=== PATIENT | male | born 1995 | race Two or more races ===

== ENCOUNTER 2017-04-25 21:52 | Emergency (ER) | payer MEDICAID ==
[~2017-04-25] VITALS: Ht 165.1 cm; Wt 65.8 kg
[2017-04-25 22:57] LABS: Basophils # (auto) 0 uL; Basophils % (auto) 0.5 % (0.0-2.0); Eosinophils # (auto) 0.1 uL; Eosinophils % (auto) 0.6 % (0.0-7.0); Hematocrit 45.3 % (41.0-53.0); Hemoglobin 14.6 g/dL (13.5-17.5); Lymphocytes # (auto) 2.4 uL; Lymphocytes % (auto) 26.8 % (10.0-50.0); Mean Corpuscular Hemoglobin 28.9 pg (28.0-32.0); Mean Corpuscular Hgb Conc. 32.3 g/dL (32.0-36.0); Mean Corpuscular Volume 89.5 fL (80.0-100.0); Monocytes # (auto) 0.7 uL; Monocytes % (auto) 7.9 % (0.0-12.0); Neutrophils # (auto) 5.8 uL; Neutrophils % (auto) 64.2 % (37.0-80.0); Nucleated Red Blood Cells % 0.2 %; Platelet Count (auto) 174 10^3/uL (140-450); Red Cell Distribution Width 13.5 % (11.8-14.3); White Blood Cell 9.1 10^3/uL (4.4-10.8)
[2017-04-25 23:16] LABS: Albumin 3.9 g/dL (3.4-5.0); BUN/Creatinine Ratio 17.6; Bilirubin, Total 0.2 mg/dL (0.2-1.0); Calcium 8.7 mg/dL (8.5-10.1); Potassium 3.4 mmol/L (3.5-5.1); Total Protein 7.5 g/dL (6.4-8.2)
[2017-04-26] MEDS ORDERED: SODIUM CHLORIDE 0.9% 1,000 ML IVB ONE ×2 (02:11)
[2017-04-26] MEDS ORDERED: ONDANSETRON HCL 4 MG/2 ML VIAL IV ONE ×2 (02:15→04:45)
[2017-04-26] MEDS ORDERED: HYDROmorphone HCL 2 MG/ML VL IV ONE ×2 (02:15→04:45)
[2017-04-26 03:20] LABS: INR 0.93 (0.9-1.15); Partial Thromboplastin Time 27.2 sec (22.64-33.71); Prothrombin Time 10.1 sec (9.37-12.3)
[2017-04-26 05:00] VITALS: BP 126/77
[2017-04-26 06:17] LABS: Urine Bilirubin Negative (Negative); Urine Blood Negative /uL (Negative); Urine Color Yellow (Yellow); Urine Glucose Normal (Normal); Urine Ketone 1+ (Negative); Urine Nitrite Negative (Negative); Urine RBC 1 /hpf (0 - 3); Urine Urobilinogen Normal (Negative); Urine pH 7.5 (5.0-8.0)
== END 2017-04-26 05:34 | disposition home or self-care (01) ==
LOC: ER 21:57 → EDBD 21:57 → ER 04-26 05:34
DX: R10.33 Periumbilical pain (principal)
CPT/HCPCS: 36415; 74000; 74176; 80053; 81001; 82150; 83690; 85025; 85610; 85730; 96361; 96374; 96375; 96376; 99285; J1170; J2405; J7030

== ENCOUNTER 2023-01-14 12:05 | Emergency (ER) | payer MEDICAID ==
[~2023-01-14] VITALS: Ht 165.1 cm; Wt 72.7 kg
[2023-01-14 12:22] VITALS: BP 122/73; PULSE 89; RESP 16; TEMP 98.8; O2SAT 96
[2023-01-14] MEDS ORDERED: DexAMETHasone SOD PHOS 10MG/1ML VIAL INJ IM ONE (14:45)
[2023-01-14] MEDS ORDERED: ACETAMINOPHEN 500 MG TAB PO ONE (14:45)
[2023-01-14 14:59] LABS: COVID19 ANTIGEN SOFIA FIA NEGATIVE (NEGATIVE)
[2023-01-14] MEDS ORDERED: ACET-1304 PO ×3 (15:24→15:42)
[2023-01-14] MEDS ORDERED: IBUP-1454 PO ×3 (15:24→15:42)
[2023-01-17] MEDS ORDERED: IBUP-1455 PO (00:29)
[2023-01-17] MEDS ORDERED: ZOFR4T PO (00:29)
== END 2023-01-14 15:37 | disposition home or self-care (01) ==
LOC: ER 12:05
DX: J02.9 Acute pharyngitis, unspecified (principal); Z20.822 Contact with and (suspected) exposure to COVID-19
CPT/HCPCS: 36415; 87426; 96372; 99283; J1100